=== PATIENT | female | born 1975 | race Caucasian/White ===

== ENCOUNTER 2017-09-27 16:53 | Emergency (ER) | payer OTHER ==
[~2017-09-27 16:53] MED LIST: CLARITIN; FISH OIL1 IU PO; LABETALOL HCL100 MG PO; WELLBUTRIN SR150 M1 PO
[2017-09-27] MEDS ORDERED: QUETIAPINE FUMA25 M3 PO (17:04)
[2017-09-27] MEDS ORDERED: VENLAFAXINE HCL75 M3 PO (17:05)
[2017-09-27] MEDS ORDERED: LABETALOL HCL100 MG PO (17:05)
[2017-09-27] MEDS ORDERED: MAGNESIUM CHELA27 MG (17:06)
[2017-09-27] MEDS ORDERED: OTEZLA30 MG PO (17:06)
[2017-09-27] MEDS ORDERED: RELPAX 40MG TAB40 MG PO (17:06)
[2017-09-27] MEDS ORDERED: ATIVAN0.5 MG PO (17:07)
[2017-09-27] MEDS ORDERED: PERCOCET 325 MG1 TA2 PO (17:07)
[2017-09-27] MEDS ORDERED: TOPIRAMATE50 MG PO (18:21)
[2017-09-27 18:42] LABS: ALBUMIN 4.7 g/dL (3.5-5.0); BUN/CREATININE RATIO 18.1 (6.0-26.0); CALCIUM 9.4 mg/dL (8.4-10.2); POTASSIUM 3.9 mmol/L (3.6-5.0); TOTAL BILIRUBIN 0.5 mg/dL (0.2-1.3); TOTAL PROTEIN 8.5 g/dL (6.3-8.2)
[2017-09-27 18:46] LABS: EOS # 0.6 (0.04-0.40); EOS % 7.6 % (1.0-5.0); HEMATOCRIT 40.8 % (37.0-47.0); HEMOGLOBIN 13.9 g/dL (12.5-16.0); LYMPH# 1.8 (1.50-4.00); MEAN CELL VOLUME 88 fl (78-100); MEAN CORPUSCULAR HEMOGLOBIN 30 pg (27-31); MEAN CORPUSCULAR HGB CONC 34 g/dL (33-37); MEAN PLATELET VOLUME 10.4 fl (7.4-10.4); MONO # 0.6 (0.20-0.80); NEU # 5.3 (1.40-6.50); PLATELET COUNT 361 K/mm3 (130-400); RED BLOOD COUNT 4.62 M/mm3 (4.10-5.30); WHITE BLOOD COUNT 8.4 K/mm3 (4.8-10.8)
[2017-09-27 20:10] LABS: URINE APPEARANCE CLEAR; URINE COLOR YELLOW
[2017-09-27 20:11] LABS: PH-URINE 5.5 (5.0 - 8.0); URINE BILIRUBIN NEGATIVE (NEGATIVE); URINE BLOOD NEGATIVE (NEGATIVE); URINE GLUCOSE NEGATIVE (NEGATIVE); URINE KETONE NEGATIVE (NEGATIVE); URINE LEUKOCYTE ESTERASE NEGATIVE (NEGATIVE); URINE NITRATE NEGATIVE (NEGATIVE); URINE PROTEIN(semi-quant) TRACE mg/dL (NEGATIVE); URINE UROBILINOGEN NORMAL (NORMAL); URINE WBC 0-1 /hpf (0-3)
[2017-09-27 20:12] LABS: ERYTHROCYTE SEDIMENTATION RATE 6 mm/hr (0-20)
[2017-09-27 20:26] VITALS: BP 132/93
== END 2017-09-27 20:26 | disposition home or self-care (01) ==
LOC: ED 16:53
PROVIDERS: Family Medicine
DX: R27.0 Ataxia, unspecified (principal); H53.2 Diplopia; T42.6X5A Adverse effect of other antiepileptic and sedative-hypnotic drugs, initial encounter; Z79.899 Other long term (current) drug therapy; R42 Dizziness and giddiness

== ENCOUNTER 2017-11-06 03:36 | Emergency (ER) | payer OTHER ==
[~2017-11-06] VITALS: Ht 170.2 cm; Wt 70.0 kg
[~2017-11-06 03:36] MED LIST changes: +ATIVAN0.5 MG PO; +MAGNESIUM CHELA27 MG; +OTEZLA30 MG PO; +PERCOCET 325 MG1 TA2 PO; +QUETIAPINE FUMA25 M3 PO; +RELPAX 40MG TAB40 MG PO; +TOPIRAMATE50 MG PO; +VENLAFAXINE HCL75 M3 PO
[2017-11-06 05:03] LABS: HEMATOCRIT 38.5 % (37.0-47.0); HEMOGLOBIN 13.5 g/dL (12.5-16.0); MEAN CELL VOLUME 88 fl (78-100); MEAN CORPUSCULAR HEMOGLOBIN 31 pg (27-31); MEAN CORPUSCULAR HGB CONC 35 g/dL (33-37); MEAN PLATELET VOLUME 10.2 fl (7.4-10.4); PLATELET COUNT 247 K/mm3 (130-400); RED BLOOD COUNT 4.39 M/mm3 (4.10-5.30); RED CELL DISTRIBUTION WIDTH 13.5 % (11.5-14.5); WHITE BLOOD COUNT 10.6 K/mm3 (4.8-10.8)
[2017-11-06 05:14] LABS: ALBUMIN 4.2 g/dL (3.5-5.0); CALCIUM 9.2 mg/dL (8.4-10.2); POTASSIUM 3.1 mmol/L (3.6-5.0); TOTAL BILIRUBIN 0.8 mg/dL (0.2-1.3); TOTAL PROTEIN 7.4 g/dL (6.3-8.2)
[2017-11-06 05:30] LABS: BAND 15 % (0-10); LYMPHOCYTE 3 % (20-51); MONOCYTE 3 % (3-10); NEUTROPHILS 88 % (42-75)
[2017-11-06 05:31] LABS: URINE APPEARANCE HAZY; URINE BILIRUBIN NEGATIVE (NEGATIVE); URINE BLOOD NEGATIVE (NEGATIVE); URINE COLOR YELLOW; URINE GLUCOSE NEGATIVE (NEGATIVE); URINE KETONE NEGATIVE (NEGATIVE); URINE LEUKOCYTE ESTERASE NEGATIVE (NEGATIVE); URINE NITRATE NEGATIVE (NEGATIVE); URINE PROTEIN(semi-quant) NEGATIVE (NEGATIVE); URINE UROBILINOGEN NORMAL (NORMAL); URINE WBC 0-1 /hpf (0-3)
[2017-11-06 10:31] VITALS: BP 102/58
== END 2017-11-06 09:47 | disposition short-term general hospital (02) ==
LOC: ED 03:36
PROVIDERS: Nurse Practitioner Family
DX: G43.909 Migraine, unspecified, not intractable, without status migrainosus (principal); E87.6 Hypokalemia; D72.825 Bandemia; Z79.899 Other long term (current) drug therapy
CPT/HCPCS: J1200; J1885; J2060; J2405; J7030

== ENCOUNTER → 2018-07-26 | Outpatient (CLI) | payer BC | LOC: RAD 14:34 | DX: S69.91XA Unspecified injury of right wrist, hand and finger(s), initial encounter (principal); S99.921A Unspecified injury of right foot, initial encounter ==

== ENCOUNTER → 2018-12-13 | Outpatient (CLI) | payer BC ==
[2018-12-13 02:11] LABS: HEMATOCRIT 37.8 % (37.0-47.0); HEMOGLOBIN 12.8 g/dL (12.5-16.0); MEAN PLATELET VOLUME 9.8 fl (7.4-10.4); RED BLOOD COUNT 4.26 M/mm3 (4.10-5.30); RED CELL DISTRIBUTION WIDTH 12.9 % (11.5-14.5); WHITE BLOOD COUNT 7.4 K/mm3 (4.8-10.8)
[2018-12-13 02:18] LABS: ALBUMIN 4.3 g/dL (3.5-5.0); POTASSIUM 4.1 mmol/L (3.5-5.1); SODIUM 138 mmol/L (136-145)
[2018-12-13 02:20] LABS: CALCIUM 9.6 mg/dL (8.3-10.5)
[2018-12-13 02:21] LABS: GLUCOSE 106 mg/dL (65-105); TOTAL PROTEIN 8.2 g/dL (6.4-8.3)
[2018-12-13 02:22] LABS: CARBON DIOXIDE 25 mmol/L (22-29)
[2018-12-13 02:23] LABS: TOTAL BILIRUBIN 0.7 mg/dL (0.2-1.2)
[2018-12-13 02:26] LABS: AST-SGOT 44 U/L (5-34)
[2018-12-13 02:27] LABS: ALT/SGPT 27 U/L (0-55)
[2018-12-13 02:35] LABS: TROPONIN-I < 0.03 ng/mL (<0.030)
[2018-12-13 02:42] LABS: D-DIMER 2.18 mg/L FEU (0.15-0.50)
== END ==
LOC: AMSURD 00:55
PROVIDERS: Family Medicine
DX: R07.9 Chest pain, unspecified (principal); R79.1 Abnormal coagulation profile; R53.81 Other malaise
CPT/HCPCS: Q9967

== ENCOUNTER 2019-01-23 05:52 | Outpatient (RCR) | payer BC ==
[2019-01-22 11:37] VITALS: BP 145/93
[2019-01-22 11:37] LABS: HEMATOCRIT 39.9 % (37.0-47.0); HEMOGLOBIN 13.4 g/dL (12.5-16.0); RED BLOOD COUNT 4.45 M/mm3 (4.10-5.30); RED CELL DISTRIBUTION WIDTH 13.4 % (11.5-14.5)
[2019-01-22 11:46] LABS: ALBUMIN 4.1 g/dL (3.5-5.0); POTASSIUM 3.9 mmol/L (3.5-5.1)
[2019-01-22 11:47] LABS: CALCIUM 9.4 mg/dL (8.3-10.5)
[2019-01-22 11:48] LABS: TOTAL PROTEIN 7.5 g/dL (6.4-8.3)
[2019-01-22 11:50] LABS: TOTAL BILIRUBIN 0.6 mg/dL (0.2-1.2)
[2019-01-22 20:08] VITALS: BP 145/96
[~2019-01-23] VITALS: Wt 86.4 kg
[2019-01-23 06:02] VITALS: BP 129/90
== END 2019-04-22 | disposition still patient (30) ==
LOC: AMSURD
PROVIDERS: Nurse Practitioner Primary Care
DX: L03.113 Cellulitis of right upper limb (principal); W55.01XA Bitten by cat, initial encounter
CPT/HCPCS: J0690

== ENCOUNTER → 2019-01-23 | Outpatient (CLI) | payer BC ==
[~2019-01-23] VITALS: Wt 86.4 kg
[~2019-01-23] MED LIST changes: +AJOVY225 MG/1.5 SQ; +ATIVAN1 M1 PO; +BELSOMRA10 MG PO; +CYMBALTA60 M1 PO; +ZYRTEC10 M3 PO
[2019-01-23 19:52] VITALS: BP 141/93
== END ==
LOC: AMSURD 17:24
DX: Z01.89 Encounter for other specified special examinations (principal)
CPT/HCPCS: A4216; J0696; J3490

== ENCOUNTER → 2019-01-23 | Outpatient (CLI) | payer BC ==
[2019-01-23 06:02] VITALS: BP 129/90
[2019-01-23 19:38] LABS: ALBUMIN 4.2 g/dL (3.5-5.0)
[2019-01-23 19:39] LABS: POTASSIUM 4.7 mmol/L (3.5-5.1)
[2019-01-23 19:40] LABS: CALCIUM 9.8 mg/dL (8.3-10.5); HEMATOCRIT 41.2 % (37.0-47.0); HEMOGLOBIN 13.8 g/dL (12.5-16.0); MEAN CELL VOLUME 90 fl (78-100); MEAN CORPUSCULAR HEMOGLOBIN 30 pg (27-31); MEAN CORPUSCULAR HGB CONC 34 g/dL (33-37); MEAN PLATELET VOLUME 10.4 fl (7.4-10.4); PLATELET COUNT 370 K/mm3 (130-400); RED BLOOD COUNT 4.59 M/mm3 (4.10-5.30); RED CELL DISTRIBUTION WIDTH 13.5 % (11.5-14.5); WHITE BLOOD COUNT 9.4 K/mm3 (4.8-10.8)
[2019-01-23 19:41] LABS: TOTAL PROTEIN 7.7 g/dL (6.4-8.3)
[2019-01-23 19:43] LABS: TOTAL BILIRUBIN 0.4 mg/dL (0.2-1.2)
[2019-01-23 20:02] LABS: LYMPHOCYTE 22 % (20-51); MONOCYTE 5 % (3-10); NEUTROPHILS 62 % (42-75)
== END ==
LOC: LAB 19:34
PROVIDERS: Nurse Practitioner Primary Care
DX: Z01.89 Encounter for other specified special examinations (principal)